=== PATIENT | female | born 1960 | race American Indian/Alaskan Native ===

== ENCOUNTER 2016-12-12 03:12 | Emergency (ER) | payer OTHER ==
[~2016-12-12] VITALS: Ht 154.9 cm; Wt 72.6 kg
[2016-12-12] MEDS ORDERED: ASPIR 8181 MG PO (03:30)
[2016-12-12] MEDS ORDERED: CRESTOR5 MG PO (03:30)
[2016-12-12] MEDS ORDERED: VITAMIN D2000 UNI1 PO (03:31)
[2016-12-12] MEDS ORDERED: LISINOPRIL5 MG PO (03:31)
[2016-12-12] MEDS ORDERED: TRAMADOL HCL50 MG PO (05:56)
[2016-12-12] MEDS ORDERED: CLINDAMYCIN HC300 MG PO (05:56)
== END 2016-12-12 06:07 | disposition home or self-care (01) ==
LOC: ED 03:12
DX: S02.2XXA Fracture of nasal bones, initial encounter for closed fracture (principal); S00.11XA Contusion of right eyelid and periocular area, initial encounter; F17.200 Nicotine dependence, unspecified, uncomplicated; I25.810 Atherosclerosis of coronary artery bypass graft(s) without angina pectoris; Z79.899 Other long term (current) drug therapy; W22.8XXA Striking against or struck by other objects, initial encounter; Y99.8 Other external cause status
CPT/HCPCS: 12011; 70450; 70486; 73030; 90471; 90715; 99284